=== PATIENT | male | born 1980 | race Caucasian/White ===

== ENCOUNTER 2016-10-16 15:24 | Emergency (ER) | payer OTHER ==
[~2016-10-16] VITALS: Ht 180.3 cm; Wt 83.8 kg
[2016-10-16 15:26] VITALS: BP 141/77
== END 2016-10-16 17:10 | disposition home or self-care (01) ==
LOC: ED 17:00
DX: S50.01XA Contusion of right elbow, initial encounter (principal); F17.210 Nicotine dependence, cigarettes, uncomplicated; W01.0XXA Fall on same level from slipping, tripping and stumbling without subsequent striking against object, initial encounter; Y93.89 Activity, other specified; Y92.524 Gas station as the place of occurrence of the external cause; Y99.9 Unspecified external cause status
CPT/HCPCS: 99284